=== PATIENT | female | born 1965 | race Caucasian/White ===

== ENCOUNTER 2023-07-02 17:50 | Inpatient (IN) | payer MEDICARE, MEDICAID ==
[~2023-07-02] VITALS: Ht 162.6 cm; Wt 115.1 kg
[2023-07-03] MEDS ORDERED: loperamide 2mg capsule PO PRN (15:55)
[2023-07-03] MEDS ORDERED: acetaminophen 325mg tablet PO PRN (15:55)
[2023-07-03] MEDS ORDERED: mag hydrox/Alum hydrox/simeth 30ml oral suspension PO PRN (15:55)
--- NOTE | 2023-07-03 16:30 | NUR ---
Admit note: [facility] 5150 at 1507 for DTS from [facility]. Pt expressed suicidal ideation with means, plan and intention to overdose on RX or drive off road on [address] Pt has history of Asthma,SVT, depression, fibromyalgia,PTSD, anxiety, personality disorder. Natalia called stating pt will have an abrupt demeanor, gave up the rights to her son, switches personalities fast, threatens to turn units into the state department. They recommend having one person point of contact.
[2023-07-03] MEDS ORDERED: MONT-47 PO (17:43)
[2023-07-03] MEDS ORDERED: CETI-90 PO (17:43)
[2023-07-03] MEDS ORDERED: IBUP-1984 PO (17:43)
[2023-07-03] MEDS ORDERED: IPRA4AER IH (17:43)
[2023-07-03] MEDS ORDERED: LISI10TA27 PO (17:43)
[2023-07-03] MEDS ORDERED: BUDE10.7 INH (17:43)
[2023-07-03] MEDS ORDERED: METF-436 PO (17:43)
[2023-07-03] MEDS ORDERED: ALPR-623 PO (17:43)
[2023-07-03] MEDS ORDERED: CEPH250T PO (17:43)
[2023-07-03] MEDS ORDERED: DULO-31 PO (17:43)
[2023-07-03] MEDS ORDERED: DIPH25CA83 PO (17:43)
[2023-07-03] MEDS ORDERED: TRAM50TA2 PO (17:43)
[2023-07-03] MEDS ORDERED: CARSR60C PO (17:43)
[2023-07-03] MEDS ORDERED: TOPI25TA15 PO (18:26)
[2023-07-03] MEDS ORDERED: DILT120C19 PO (18:26)
[2023-07-03 19:00] VITALS: RESP 16; O2SAT 98
[2023-07-03] MEDS ORDERED: diphenhydrAMINE 25mg capsule PO PRN (19:25)
[2023-07-03] MEDS ORDERED: ALPRAZolam 0.25mg tablet PO PRN (19:25)
[2023-07-03] MEDS ORDERED: ipratropium/albuterol 3ml nebule NEB PRN ×2 (19:25→19:29)
[2023-07-03] MEDS ORDERED: traMADol 50MG tablet PO PRN (19:25)
[2023-07-03 20:00] VITALS: BP 144/85; PULSE 85; RESP 16; TEMP 98.5; O2SAT 98
[2023-07-03] MEDS: Budesonide/Glycopyr/Formoterol (Breztri Aerosphere Inhaler) IH SCH (20:00)
[2023-07-03] MEDS ORDERED: metFORMIN 500mg tablet PO SCH (20:00)
[2023-07-03 20:58] VITALS: BP 114/85; PULSE 85; RESP 16; TEMP 98.5; O2SAT 98
[2023-07-03 23:31] VITALS: PULSE 73; RESP 18; O2SAT 95
--- NOTE | 2023-07-03 23:47 | NUR ---
Nursing Progress Note: Valeria Problem : [facility] on a 5150 at 1507 for DTS from [facility]. Pt expressed suicidal ideation with means, plan and intention to overdose on RX or drive [place] road on [address] Pt has history of Asthma,SVT, depression, fibromyalgia,PTSD, anxiety, personality disorder. Natalia called stating pt will have an abrupt demeanor, gave up the rights to her son, switches personalities fast, threatens to turn units into the state department. They recommend having one person point of contact. Interventions : Maintained a safe and supportive environment, provided clear and simple instructions, attempted to orient to reality, monitored behaviors and provided redirection and intervention as needed, provided active listening and positive encouragement, and maintained Q 15min safety checks. Response : Received pt lying in bed resting. Pt has flat affect and answered questions minimally with a blank stare. Pt states she has some depression and anxiety, denies SI at this time. Pt states she is tired and wants to sleep. Pt took Metformin this evening. Pt is currently sleeping and has no needs at this time. Plan : Pt. continues to require medication adjustments and a safe and supportive environment.
--- NOTE | 2023-07-04 01:49 | NUR ---
Pt irritability: Pt woke at approximately 0130 making accusations that this play writer did not provide her with her nighttime medications. Pt making demands to use the phone to call the patients advocate and a print out of her medication list. The CN was notified and talked with the patient.
--- NOTE | 2023-07-04 01:50 | NUR ---
Pt c/o RN not providing her with ordered medications approx 0130. Pt was informed that she had prns available if she would like more medications. Pt states 'I went over my med list with someone and I should get my meds." Assured patient that her med rec had been completed and reviewed with provider and forwarded to the pharmacy. Pt requested to see the list of meds. I attempted to show her the med list and go over it with her. Pt stood in the hallway documenting my response to multiple questions, rather than make an attempt to look at the list she had asked to see. Pt requested to contact the rights advocate. pt was allowed a phone to contact her rights advocate and became demanding and insisting she be provided with a chair in the hallway. She was informed she has a chair in her room and she could take the phone to her room and make her call. Pt handed phone back PCT after making attempts to call. Pt proceeded to stand outside the nurses station door for several minutes and then returned to her room. Pt then wrote a letter requesting a chair be placed for her outside of the nurses station door. Pt states she doesnt want to walk back and forth in the hallway to her room and back due to the distance of walking causing her pain. Pt is requesting large written materials in a size 14 point font and for the materials to be properly formatted.
[2023-07-04 07:12] VITALS: RESP 16; O2SAT 98
[2023-07-04] MEDS: diltiazem CD 120mg capsule (once-daily) PO SCH (07:38)
--- NOTE | 2023-07-04 07:38 | NUR ---
Cardizem refusal: Pt refused to take her cardizem this morning. Pt states she demanded it this morning at 0200 but was not given it. Pt states she takes it each evening and will refuse it this morning and this evening. Pt is aware this will cause her to go into SVT as it did while she was at [facility].
--- NOTE | 2023-07-04 07:55 | NUR ---
Uncooperative: Attempted to address with pt her medication reconciliation about which medications she takes at night. Pt refused to answer or cooperate demanding to speak with her patient advocate. Pt given a phone and instructions to use the phone. Pt continues to refuse to take any medications.
[2023-07-04] MEDS ORDERED: montelukast 10mg tablet PO SCH (08:00)
[2023-07-04] MEDS ORDERED: topiramate 25mg tablet PO SCH ×2 (08:00→21:00)
[2023-07-04] MEDS ORDERED: lisinopril 10 MG tablet PO SCH (08:00)
[2023-07-04] MEDS: Budesonide/Glycopyr/Formoterol (Breztri Aerosphere Inhaler) IH SCH ×2 (08:00→20:00)
[2023-07-04] MEDS ORDERED: diltiazem SR 60mg capsule (twice daily) PO SCH (08:00)
[2023-07-04] MEDS ORDERED: cetirizine 10mg tablet PO SCH (08:00)
[2023-07-04 08:30] VITALS: BP 114/85; PULSE 85; RESP 16; TEMP 98.5; O2SAT 98
--- NOTE | 2023-07-04 08:45 | NUR ---
SVT: Pt in seclusion room with Dr Maradiaga for evaluation. Pt then states her heart feels palpitations. Starting EKG and printout shows Supraventricular tachycardia at 191.
[2023-07-04] MEDS ORDERED: ALPRAZolam 0.25mg tablet PO ONE (08:55)
--- NOTE | 2023-07-04 09:00 | NUR ---
Paging hospitalist and paging Rapid Response.
[2023-07-04] MEDS ORDERED: ALPRAZolam 0.5mg tablet PO ONE (09:05)
--- NOTE | 2023-07-04 09:05 | NUR ---
Rapid response arrives and pt is refusing any treatment. PT refuses to allow any of the [facility] staff to apply vital sign treatment or start peripheral IV. Pt demands to be removed from this unit and may be cooperative if placed on another unit. Rachel from ICU attempting to help after all H staff leave the room but pt still refuses treatment . Pt demands to be placed on a different unit.
--- NOTE | 2023-07-04 09:25 | NUR ---
Hospitalist arrives: Dr Vásquez arrives and discussing this case with Dr Maradiaga about the legalities of pts refusal of treatment.
--- NOTE | 2023-07-04 09:40 | NUR ---
Note: Pt ambulates to her room. Dr Maradiaga is in her room talking with her. Attempting to convince pt to accept treatment.
[2023-07-04] MEDS: duloxetine 30mg CAPSULE.DR PO SCH (10:00)
--- NOTE | 2023-07-04 10:18 | NUR ---
Malnutrition consult: Pt reports 2-13 lb wt loss with decreased appetite/PO intake per malnutrition risk screen with RN. Most recent scaled wt hx in EMR is 116.3 kg from 02/17/15 using a standing scale, current standing scaled wt is 114.7 kg which is 210% IBW. Pt currently on a CHO controlled diet and eating well, documented with 100% PO intake of first meal. No documented decrease in muscle strength or edema. Pt currently lacks a minimum of two criteria for malnutrition though will continue to follow and monitor s/s of malnutrition. Addendum: 07/04/23 at [address] Amended: Links added.
--- NOTE | 2023-07-04 10:39 | NUR ---
Pt care was transferred to this RN in an attempt to establish a new therapeutic relationship due to pt refusing am medications. Due to am medication refusal pt had a rapid response called due to ekg showing SVT. Pt refuses telemetry monitoring. Pt is perseverating on medications not being offered to her last night at 0200 when she asked for them. Educated patient that nurse's can not give medications without doctors orders and that medications were scheduled for this am. Pt stated that the doctors "clearly are saying that I should not take my medications since they did not schedule them for me to take last night". Pt states that diltiazem will not convert her SVT to sinus rhythm, states that she needs adenosine in the ER. This RN asked patient if we took her to the ER to administer adenosine if she would accept the treatment. Pt refused. Pt stated "this [facility] has screwed the pooch. I want an ambulance to take me back to [place], that is the only treatment I will accept". Educated patient that the doctor does want her to accept treatment and has asked this RN to administer diltiazem. Pt still refuses due to not receiving it last night when she requested.
--- NOTE | 2023-07-04 10:54 | NUR ---
Note: Pt has now refused treatment from all available nurses and staff on this unit. Pt now refusing treatment at this hospital no matter what unit she would be transferred to. Pt demanding to be transferred back to [facility] where she refused treatment yesterday until she eventually accepted adenosine.
--- NOTE | 2023-07-04 11:13 | NUR ---
Mixing Machine Feeder: Dr Maradiaga wants to place pt on Line of site. Called NUrsing Mixing Machine Feeder. She states there are no more staff for Line of site. Attempting to place pt in observation room for closer observation.
--- NOTE | 2023-07-04 11:13 | NUR ---
EKG refusal: professor of industrial technology here to repeat EKG. Pt refused to allow an EKG.
--- NOTE | 2023-07-04 11:22 | NUR ---
Pt refusing to move to seclusion room for closer observation.
--- NOTE | 2023-07-04 11:29 | NUR ---
Dr Vásquez has accepted pt to telemetry department. Admit orders written and faxed. Nursing public relations supervisor is aware and finding and empty room.
[2023-07-04] MEDS ORDERED: CARCD120C PO (11:34)
[2023-07-04] MEDS ORDERED: TOP25T PO (11:34)
[2023-07-04] MEDS ORDERED: IPRA3AMP9 NEB (11:34)
[2023-07-04] MEDS ORDERED: DULO30CA52 PO (11:34)
[2023-07-04] MEDS ORDERED: Miscellaneous IH (11:34)
[2023-07-04] MEDS ORDERED: MONT-40 PO (11:34)
[2023-07-04] MEDS ORDERED: ALPR0.5T9 PO (11:34)
[2023-07-04] MEDS ORDERED: METF-1203 PO (11:34)
[2023-07-04] MEDS ORDERED: TRAM50TA2 PO (11:34)
[2023-07-04] MEDS ORDERED: CETI10TA14 PO (11:34)
[2023-07-04] MEDS ORDERED: LISI10TA27 PO (11:34)
[2023-07-04] MEDS ORDERED: DIPH-423 PO (11:34)
--- NOTE | 2023-07-04 12:05 | NUR ---
Refusal of Tele: Attempted to place pt on portable telemetry. Pt refused to allow telemetry applied.
--- NOTE | 2023-07-04 12:10 | NUR ---
Refusal of vital signs: MD ordered vital signs Q2 hours. Pt refused to allow vital signs at this time.
[2023-07-04] MEDS: ALPRAZolam 0.5mg tablet PO SCH ×2 (13:00→21:04)
--- NOTE | 2023-07-04 13:30 | NUR ---
Xray refusal: Pt refused to allow a chest xray to be performed. Pt states "I refuse, I refuse."
--- NOTE | 2023-07-04 13:52 | NUR ---
Pt refusing anything offered. This RN has checked on the patient several times since 1000 and she has refused water, medications, and food. No s/s of distress. Pt in room laying in bed. Respirations even and unlabored.
--- NOTE | 2023-07-04 14:05 | NUR ---
Note: Asked pt how she is feeling. Asked pt how her heart is feeling. PT refuses to answer. Pt is rocking back and forth in chair in her room. Dr Maradiaga called asking about progress on moving pt to Telemetry. Awaiting an open room on Telemetry for transfer. Orders written for admit to Tele and pt accepted by Dr Vásquez.
--- NOTE | 2023-07-04 15:00 | NUR ---
Dr Vásquez here to evaluate pt. states he was able to palpate pts pulse at 98-100 BPM. Pt refuses Mellisa to allow vital signs. mold maintenance technician up here to do EKG. PT refuses to allow EKG. Spoke with Dr Maradiaga about this. He states we should continue to try and get pt moved over to PCU for EKG monitoring and medications.
--- NOTE | 2023-07-04 15:23 | NUR ---
Nursing right of way supervisor comes to speak with the pt. She asks pt if she would like to be transferred to the PCU for treatment with different staff members . Pt states "This hospital has no credibility with me. The nurses last night wouldn't give me any of my medications at 0200 in the morning." Pt then starts complaining about the last hospital she was at and "They took 2 days to give me my medications." Nursing right of way supervisor Lynn continues to convince pt to go to PCU for treatment. Pt denies that any MD attempted to correct her medication times. Dr Maradiaga has changed her medication times to how she requested. Pt continued to complain about other hospitals treatment of her. PT states she called the patient advocate at the other hospital. Rn Case Manager asked again if she will go over to PCU for treatment. Pt states "Im done taking medications, I refuse treatment."
--- NOTE | 2023-07-04 16:02 | NUR ---
Pt requested to be moved due to roommate internally responding. Pt moved to observation room.
--- NOTE | 2023-07-04 16:26 | NUR ---
Pt refused all interventions, medications and treatments. Pt is accusatory and abrasive in conversations with staff. Attempts to establish rapport with pt were not successful. Pt continues to perseverate about her medications not being given to her when she wanted them at 0200.
[2023-07-04 16:30] VITALS: BP 177/112; PULSE 91; RESP 16; O2SAT 96
--- NOTE | 2023-07-04 16:39 | NUR ---
Pt requested to have vitals taken due to a "brain zap, feels like the zap when you stick your tongue to a battery, but in your brain". Took pt's vitals and charted. Asked pt if she would like to take her medications now. Pt refused stating "I'm four days in withdrawal, I might as well go all the way". Pt educated on importance of taking medications.
--- NOTE | 2023-07-04 17:33 | NUR ---
Nursing Progress Note: Valeria Problem : [facility] on a 5150 at 1507 for DTS from [facility]. Pt expressed suicidal ideation with means, plan and intention to overdose on RX or drive off road on [address] Pt has history of Asthma,SVT, depression, fibromyalgia,PTSD, anxiety, personality disorder. Natalia called stating pt will have an abrupt demeanor, gave up the rights to her son, switches personalities fast, threatens to turn units into the state department. They recommend having one person point of contact. Interventions : Maintained a safe and supportive environment, provided clear and simple instructions, attempted to orient to reality, monitored behaviors and provided redirection and intervention as needed, provided active listening and positive encouragement, and maintained Q 15min safety checks. Response : Patient was received sleeping a beginning of shift. Patient was awaken to be given morning medications. Patient started going on about how last night patient was not given proper medications. Patient then refused to have vitals taken even when informed that her medications required blood pressure. Patient then refused all medications including heart medications. Patient went into talk to Dr Maradiaga who stated patient complained of heart palpitations . Dr. Maradiaga then ordered a ekg and vitals. Patient finally agreed to get vitals taken. Ekg read super ventricular tachycardia and rapid was called . Patient then started to refuse all care and meds and complain about the incompetence of staff. As 1744 patient continues to refuse all meds ,manipulate the staff and threaten to call patient rights and the state. Patient continues to not be willing to reason. Plan : Pt. continues to require medication adjustments and a safe and supportive environment.
[2023-07-04 20:00] VITALS: BP 151/92; PULSE 90; RESP 16; RESP 17; TEMP 96.9; O2SAT 96
[2023-07-04] MEDS: metFORMIN 500mg tablet PO SCH (20:00)
[2023-07-04] MEDS: cetirizine 10mg tablet PO SCH (21:02)
[2023-07-04] MEDS: montelukast 10mg tablet PO SCH (21:03)
[2023-07-04] MEDS: lisinopril 10 MG tablet PO SCH (21:04)
[2023-07-04] MEDS: traMADol 50MG tablet PO PRN (21:08)
[2023-07-05] VITALS (7 sets, daily range): BP systolic 133–153; BP diastolic 82–90; PULSE 62–96; RESP 16; TEMP 96.6–97.2; O2SAT 97–99
--- NOTE | 2023-07-05 03:27 | NUR ---
Nursing Progress Note: Valeria Problem: [facility] on a 5150 at 1507 for DTS from [facility]. Pt expressed suicidal ideation with means, plan and intention to overdose on RX or drive off road on [address] Pt has history of Asthma, VT, depression, fibromyalgia, PTSD, anxiety, personality disorder. Natalia called stating pt will have an abrupt demeanor, gave up the rights to her son, switches personalities fast, and threatens to turn units into the state department. They recommend having one person point of contact. Interventions : Maintained a safe and supportive environment, provided clear and simple instructions, attempted to orient to reality, monitored behaviors and provided redirection and intervention as needed, provided active listening and positive encouragement, and maintained Q 15min safety checks. Response: upon shift patient was in room with sitter. During 1:1, patient seemed misunderstood. She explained a lot of the events that had happened during AM shift and her strong disliking of a certain nurse. She stated she will call who she needs to call to get things right, and to be treated right. She ensures us as the hospital cannot let her leave without a ride arranged. She mentioned to sitter that her friend is going to get a gun off the black market and shes going to use it. She stated since every other way did not work, the gun will. Patient also stated she has no need for the sitter, shes better now. Patient denies any voices, hallucinations, and bad thoughts. Patient requested a retake of VS, VS came back with improvement. Patient remained in bed all night. Plan: Pt. continues to require medication adjustments and a safe and supportive environment.
[2023-07-05] MEDS: Budesonide/Glycopyr/Formoterol (Breztri Aerosphere Inhaler) IH SCH ×2 (08:00→20:00)
[2023-07-05] MEDS: metFORMIN 500mg tablet PO SCH ×2 (08:07→20:28)
[2023-07-05] MEDS: diltiazem CD 120mg capsule (once-daily) PO SCH (08:07)
[2023-07-05] MEDS: ALPRAZolam 0.5mg tablet PO SCH ×3 (08:07→20:28)
[2023-07-05] MEDS: duloxetine 30mg CAPSULE.DR PO SCH (08:07)
[2023-07-05] MEDS: traMADol 50MG tablet PO PRN ×2 (08:09→20:29)
[2023-07-05] MEDS: ipratropium 0.5 MG/2.5ML nebule IH SCH ×3 (09:42→20:40)
[2023-07-05] MEDS: budesonide 0.5mg/2ml UD nebule IH SCH ×2 (09:42→20:40)
[2023-07-05] MEDS ORDERED: vortioxetine HBr tablet 5 MG TABLET PO ONE (12:40)
--- NOTE | 2023-07-05 16:23 | NUR ---
Nursing Progress Note: Problem: [facility] on a 5150 at 1507 for DTS from [facility]. Pt expressed suicidal ideation with means, plan and intention to overdose on RX or drive off road on [address] Pt has history of Asthma, VT, depression, fibromyalgia, PTSD, anxiety, personality disorder. Natalia called stating pt will have an abrupt demeanor, gave up the rights to her son, switches personalities fast, and threatens to turn units into the state department. They recommend having one person point of contact. Interventions : 1:1 assessment, establishment of rapport, therapeutic conversation, active listening, medication administration/education/monitoring, ensured contract for safety, provided distraction, redirection, positive reinforcement, LOS until just before morning snack around and then maintained Q15 minute safety checks. Response: Pt was up for breakfast and cooperative with her medications. Upon auscultation of lungs, inspiratory and expiratory wheezes noted throughout. Pt had an order for her home inhaler Bretzi which is not available from our pharmacy. Pt is from [facility] and has no one available to bring the inhaler to her. Consulted with pharmacy and Dr Maradiaga to determine appropriate nebulizer orders. Pt cannot use albuterol due to the risk of it sending her into SVT. Orders were obtained for budesonide neb tx BID routine, and ipratropium nebulizer treatments Q6HWA as well as Q4H PRN. Pt tolerated nebulizer treatments well. Pt reports that it was determined that she does not have asthma but has COPD. Pt reports that she cannot taste or smell, she doesn't know why, she also has blurry vision and this has been going on for quite some time. Pt states she believes it might be some kind of conversion disorder. Pt c/o 5/10 neck and low back pain this morning and was given PRN tramadol 50 mg with good effect. Pt was able to contact for safety this morning so her line of sight was discontinued before morning snack. Pt rated her depression at an 8/10 though denied SI. She showered today. Pt was given a one time dose of Trintellix 2.5 mg now at 1336. She has new orders for Trintellix 5 mg BID to start tomorrow. Her Topamax was increased to 75 mg HS. Plan: Pt. continues to require medication adjustments and a safe and supportive environment. Addendum: 07/05/23 at 1642 by Jaimie Plasencia RN (Lee) VSS, HR 62 BPM.
[2023-07-05] MEDS ORDERED: vortioxetine HBr tablet 10 MG TABLET PO SCH (20:00)
[2023-07-05] MEDS: lisinopril 10 MG tablet PO SCH (20:29)
[2023-07-05] MEDS: cetirizine 10mg tablet PO SCH (20:30)
[2023-07-05] MEDS: montelukast 10mg tablet PO SCH (20:31)
[2023-07-05] MEDS ORDERED: topiramate 25mg tablet PO SCH (21:00)
[2023-07-06] VITALS (7 sets, daily range): BP systolic 103–122; BP diastolic 70–77; PULSE 66–82; RESP 15–17; TEMP 97.2–97.7; O2SAT 95–99
--- NOTE | 2023-07-06 03:23 | NUR ---
Nursing Progress Note: Valeria Problem: [facility] on a 5150 at 1507 for DTS from [facility]. Pt expressed suicidal ideation with means, plan and intention to overdose on RX or drive off road on [address] Pt has history of Asthma, VT, depression, fibromyalgia, PTSD, anxiety, personality disorder. Natalia called stating pt will have an abrupt demeanor, gave up the rights to her son, switches personalities fast, and threatens to turn units into the state department. They recommend having one person point of contact. Interventions: 1:1 assessment, establishment of rapport, therapeutic conversation, active listening, medication administration/education/monitoring, ensured contract for safety, provided distraction, redirection, positive reinforcement, LOS until just before morning snack around and then maintained Q15 minute safety checks. Response: upon entering shift patient was observed in bed with eyes closed and lying on right side. Patient now on Q15 minute safety checks. Patient easily aroused when entering patient room. Patient seemed more down and less talkative today, when asked if there was something bothering her she states the same nurse as yesterday. Patient began to vent about the reason she wasnt attending dinner stating her roommate rearranges and rummages through her belongings when shes out at meals and socializing. This nurse got the okay to move her to RM 324A in hopes that will help her and give her more security of her belongings and space. Patient denies all psychosis symptoms and takes medications with no complaints to note. Patient was administered PRN Tramadol for back pain. Patient participated in HS snack and then later returned to room and has remained there all night. Plan: Pt. continues to require medication adjustments and a safe and supportive environment.
[2023-07-06] MEDS: ipratropium 0.5 MG/2.5ML nebule IH SCH ×3 (06:00→20:00)
[2023-07-06] MEDS: Budesonide/Glycopyr/Formoterol (Breztri Aerosphere Inhaler) IH SCH ×2 (08:00→20:00)
[2023-07-06] MEDS: metFORMIN 500mg tablet PO SCH ×2 (08:17→20:00)
[2023-07-06] MEDS: diltiazem CD 120mg capsule (once-daily) PO SCH (08:17)
[2023-07-06] MEDS: LORazepam 0.5 MG tablet PO SCH ×3 (08:17→21:00)
[2023-07-06] MEDS: duloxetine 30mg CAPSULE.DR PO SCH (08:18)
[2023-07-06] MEDS: traMADol 50MG tablet PO PRN (08:24)
[2023-07-06] MEDS ORDERED: budesonide 0.5mg/2ml UD nebule IH SCH (08:57)
[2023-07-06] MEDS: ipratropium 0.5 MG/2.5ML nebule IH PRN (09:06)
[2023-07-06] MEDS: budesonide 0.5mg/2ml UD nebule IH SCH ×2 (09:06→20:07)
--- NOTE | 2023-07-06 11:30 | NUR ---
[facility] Toya from [facility] (ph# [phone]) called to provide information. She reported Valeria gave up her 14 y/o son last week prior to getting hospitalized. She also gave up her older two kids previously in the same fashion. She will now have some sort of child abandonment charge. Toya was concerned that Valeria was truly suicidal and that is why she gave up her son. Toya is concerned that Valeria will get discharged prematurely. DAVID Yanez
[2023-07-06] MEDS: traMADol 50MG tablet PO SCH ×2 (13:03→21:00)
--- NOTE | 2023-07-06 15:00 | NUR ---
Introduced myself to Valeria as her social work nurse and met with her in her room. We were interrupted a couple times by her roommate. Valeria reported she has been asking for help for months and she gave up her son because she was planning on harming herself and she didn't want her son to find her . Valeria reported she was arrested and charged with child abandonment. Valeria reported she was hoping to go to a CSU upon discharge. She reported she went to one in [place] and it didn't work out. Valeria reported she has an apartment in [place] to return to upon discharge and she is connected with [facility]. DAVID Yanez Addendum: 07/07/23 at 1249 by Diamond Santos SS Spoke to charge nurse, Kat May, regarding change of roommate due to roommate being quite disruptive.
--- NOTE | 2023-07-06 15:56 | NUR ---
Nursing Progress Note: Valeria Problem: [facility] on a 5150 at 1507 for DTS from [facility]. Pt expressed suicidal ideation with means, plan and intention to overdose on RX or drive off road on [address] Pt has history of Asthma, VT, depression, fibromyalgia, PTSD, anxiety, personality disorder. Natalia called stating pt will have an abrupt demeanor, gave up the rights to her son, switches personalities fast, and threatens to turn units into the state department. They recommend having one person point of contact. Interventions : 1:1 assessment, establishment of rapport, therapeutic conversation, active listening, medication administration/education/monitoring, ensured contract for safety, provided distraction, redirection, positive reinforcement, LOS until just before morning snack around and then maintained Q15 minute safety checks. Response: Received Pt in bed and in no distress at the beginning of this shift. Pt was cooperative with vitals and remained in bed. Attempts made to introduce self to her and establish a rapport. Pt resistive to Tx/ AM meds with fault finding of staff and claims we are not providing her with correct Med list. After much encouragement, assurance and attempts to show we want to treat her well, she took her AM meds. Pt was given prn Tramadol for back pain and was irritated that it was not a scheduled med. Pt skipped breakfast and met with Dr Maradiaga. Pt tolerated AM breathing Txs well. Pt had multiple med changes today; Ativan started and Xanax DCd, Tritellex DCd, Tramadol started as scheduled. Pt was given tramadol for back pain with good effect in AM and at 1300. Pt was up to [facility] room for AM group and was smiling and talking with this RN pleasantly. Her room was changed back to 330 and she responded to the change well. Pt took 1300 meds w/o any issues. Pt spent afternoon napping. Multiple call from [facility] were responded too by this RN and staff. Plan: Pt. continues to require medication adjustments and a safe and supportive environment.
[2023-07-06] MEDS: docusate sod 100mg capsule PO SCH ×2 (18:03→20:00)
--- NOTE | 2023-07-06 20:18 | NUR ---
Pt. is now complaining again about her roommate. The reason this patient was moved last night was due to similar issues and the other patient(her roommate) is not capable of being redirected, and would be difficult to be roommates with any patient. This is the reason the decision was made to move Valeria into a room with a quiet roommate. The patient was offered to move to another room, but she continues to insist that her roommate is the one that should be moved. I once again explained to her my reasoning for my decision last night and pt. is unwilling to understand how it is unfair to have a difficult pt. in with another roommate, when she could move if she desires. She is now refusing to takes meds, demanding that we call Dr. Maradiaga and that he is going to "Be on this like white on rice!" She is now requesting complaint forms and now stating that I did not give her all the complaint form pages.
[2023-07-06] MEDS: montelukast 10mg tablet PO SCH (21:00)
[2023-07-06] MEDS: lisinopril 10 MG tablet PO SCH (21:00)
[2023-07-06] MEDS: topiramate 100mg tablet PO SCH (21:00)
[2023-07-06] MEDS: cetirizine 10mg tablet PO SCH (21:00)
--- NOTE | 2023-07-07 04:33 | NUR ---
Nursing Progress Note: Problem: [facility] at 1507 for DTS from [facility]. Pt expressed suicidal ideation with means, plan and intention to overdose on RX or drive off road on [address] Pt has history of Asthma, [place], depression, fibromyalgia, PTSD, anxiety, personality disorder. Natalia called stating pt will have an abrupt demeanor, gave up the rights to her son, switches personalities fast, and threatens to turn units into the state department. They recommend having one person point of contact. Interventions: 1:1 assessment, establishment of rapport, therapeutic conversation, active listening, medication administration/education/monitoring, ensured contract for safety, provided distraction, redirection, positive reinforcement, LOS until just before morning snack around and then maintained Q15 minute safety checks. Response: Pt was sleeping at start of shift. Woke up easily for VS. Complained about roommate asked to have roommate moved. (See previous note by Charge Nurse) Pt refused all HS meds "I need to stay awake and see what my roommate is going to do." Asked pt if she wanted Glucophage and Lisinopril because they would not make her sleepy Pt refused. Pt BP was 122/70, HR was 76, Sats 99% on RA. Last A1C on 07/05 was 6.1. Pt went to sleep shortly after that she slept till about 22:00 woke up sitting on side of bed and rocking back and forth. Offered Medication to help her sleep or Tramadol if she was in pain. Pt refused, She responded in an almost whisper and said only one word no. Pt went into bathroom and sat on the bathroom floor in the corner. Pt returned to bed and is sleeping at this time. Plan: Pt. continues to require medication adjustments and a safe and supportive environment.
[2023-07-07 07:00] VITALS: RESP 16; O2SAT 97
[2023-07-07 08:00] VITALS: RESP 18
[2023-07-07] MEDS: traMADol 50MG tablet PO SCH ×3 (08:00→20:03)
[2023-07-07] MEDS: Budesonide/Glycopyr/Formoterol (Breztri Aerosphere Inhaler) IH SCH ×2 (08:00→20:00)
[2023-07-07] MEDS: ipratropium 0.5 MG/2.5ML nebule IH SCH ×3 (08:00→20:00)
[2023-07-07] MEDS: budesonide 0.5mg/2ml UD nebule IH SCH ×2 (08:00→20:00)
[2023-07-07] MEDS: LORazepam 0.5 MG tablet PO SCH ×3 (08:00→20:03)
--- NOTE | 2023-07-07 09:15 | NUR ---
Refusal of Care: Received pt. sleeping in bed, she awoke irritable and refused vital signs and medications despite ongoing education and encouragement from this keno writer regarding the importance of these. Pt. stated agitatedly, "I don't need a lecture from you!" She went on to report with agitation that shift engineer did not remove her room mate from her room last night. Pt. stated agitatedly, "They didn't follow Dr. Maradiaga's instructions!" This keno writer provided active listening and positive encouragement and assured pt. that she would be contacting Dr. Maradiaga regarding this issue. However, pt. remained irritable and began making various telephone calls and appeared to threaten this keno writer, "[facility] is going to be calling you guys!" This keno writer notified Dr. Maradiaga via telephone of the pt' refusing V/S, medications (including Cardizem), and her ongoing demands that her roommate be removed from her room. Dr. Maradiaga gave orders to remove pt's roommate from her room and this task is now in process. This keno writer informed pt. that staff is working on having pt's roommate removed at this time and she stated irritably, "I'll believe it when I see it!" Pt. is now back on the telephone requesting a WRIT, this form was provide to pt, will continue to monitor closely. Addendum: 07/07/23 at 1008 by Clarissa Zuleta RN Pt. is on phone at this time. She repeatedly shuts her door and is reminded by staff repeatedly that she must leave that door cracked. Pt. remains agitated and states, "I need my privacy!" Will continue to provide education to pt. that the door must be cracked per unit policy.
--- NOTE | 2023-07-07 11:27 | NUR ---
Initial: Pt admit DX borderline personality d/o, mood d/o, SVT, HTN, and DM per EMR. Unsure DM accuracy as A1C 6.1% w/ no prior A1C hx in EMR though takes metformin at home per clinical pharmacist. PO fluctuates w/ occasional refusals ~53% avg carb controlled meals meeting ~61% kcal and ~73% protein estimated needs. RD d/w RN recommends liberalizing to regular diet given A1C and PO trends if MD agreeable; current intake trends would meet ~88% kcal and ~93% protein estimated needs on regular. Pt does have metformin BID ordered though refusing most meds including colace she requested for reported constipation; LBM 8/12 per EMR. Will monitor for further PO trends and nutrition intervention needs this admit. Rec: 1. liberalize to regular diet; A1C 6.1% carb restriction not indicated; encourage PO 2. routine bowel care; encourage acceptance to bowel regimen 3. weekly wt Addendum: 07/07/23 at [address] Amended: Links added.
[2023-07-07 13:06] VITALS: BP 150/102; PULSE 81; RESP 16; TEMP 98.4; O2SAT 97
[2023-07-07] MEDS: duloxetine 30mg CAPSULE.DR PO SCH (13:10)
[2023-07-07] MEDS: docusate sod 100mg capsule PO SCH ×2 (13:11→20:03)
[2023-07-07] MEDS: vortioxetine HBr tablet 5 MG TABLET PO SCH (13:11)
[2023-07-07] MEDS: diltiazem CD 120mg capsule (once-daily) PO SCH (13:11)
[2023-07-07] MEDS: metFORMIN 500mg tablet PO SCH ×2 (13:12→20:03)
[2023-07-07 14:48] VITALS: BP 145/90
--- NOTE | 2023-07-07 18:10 | NUR ---
Nursing Progress Note: Problem : [facility] 5150 at 1507 for DTS from [facility]. Pt expressed suicidal ideation with means, plan and intention to overdose on RX or drive off road on [address] Pt has history of Asthma, VT, depression, fibromyalgia, PTSD, anxiety, personality disorder. [place]ia called stating pt will have an abrupt demeanor, gave up the rights to her son, switches personalities fast, and threatens to turn units into the state department. They recommend having one person point of contact. Interventions : Introduced self and attempted to establish rapport, maintained a safe and supportive environment, ensured contract for safety, provided clear and simple instructions, provided active listening and positive encouragement, provided education and encouragement regarding medications, endorsed pt's refusal of care to Dr. Maradiaga, and maintained Q 15min safety checks. Response : Received pt. sleeping in bed at the beginning of the shift, she awoke refusing all care, with agitation, and was guarded (see previous note). This marine underwriter introduced herself and attempted to establish rapport, pt. remained agitated and avoided eye contact with this marine underwriter. She refused conversation, shaking her head yes or no to direct questions only. Pt. shook her head no when questioned regarding any S/I, A/V/HERNDON, anxiety, or depression. She does not appear to be responding to internal stimuli and no delusional statements were made. Pt. isolated in her room throughout the morning. Finally, at approximately [address] Maradiaga, pt. consented to having her vital signs assessed and taking her ordered medications. Dr. Maradiaga gave orders for this marine underwriter to administer all of pt's ordered morning medications that she had earlier refused (however ordered morning dose of Ativan and Ultram were non-administered as pt. had an afternoon dose of these medications scheduled). Pt's blood pressure was assessed and was elevated, however it was reassessed after taking her ordered Cardizem and was WNL. Pt. also withdrew her WRIT after talking with Dr. Maradiaga, and plans to discharge later this week. Pt. was observed to be interacting appropriately with others during the afternoon. She was compliant with all further care, will continue to monitor closely. Plan : Pt. continues to require medication adjustments and a safe and supportive environment.
[2023-07-07 19:00] VITALS: RESP 18; O2SAT 96
[2023-07-07 19:48] VITALS: BP 139/84; PULSE 78; RESP 18; TEMP 97.5; O2SAT 96
[2023-07-07] MEDS: lisinopril 10 MG tablet PO SCH (20:02)
[2023-07-07] MEDS: cetirizine 10mg tablet PO SCH (20:02)
[2023-07-07] MEDS: montelukast 10mg tablet PO SCH (20:03)
[2023-07-07] MEDS: topiramate 100mg tablet PO SCH (20:04)
[2023-07-07] MEDS: magnesium hydroxide 30ml (MOM) UD suspension PO PRN (22:14)
[2023-07-07] MEDS: acetaminophen 325mg tablet PO PRN (22:49)
[2023-07-08] MEDS ORDERED: traZODone 50mg tablet PO SCH (00:25)
--- NOTE | 2023-07-08 03:04 | NUR ---
Nursing Progress Note: Problem : [facility] 5150 at 1507 for DTS from [facility]. Pt expressed suicidal ideation with means, plan and intention to overdose on RX or drive off road on [address] Pt has history of Asthma, VT, depression, fibromyalgia, PTSD, anxiety, personality disorder. Natalia called stating pt will have an abrupt demeanor, gave up the rights to her son, switches personalities fast, and threatens to turn units into the state department. They recommend having one person point of contact. Interventions : Introduced self and attempted to establish rapport, maintained a safe and supportive environment, ensured contract for safety, provided clear and simple instructions, provided active listening and positive encouragement, provided education and encouragement regarding medications, endorsed pt's refusal of care to Dr. Maradiaga, and maintained Q 15min safety checks. Response : Pt more pleasant to nursing staff this shift than last NOC shift. She did berate the horticulture worker who cleaned the empty bed in her room. She also threatened the RT With reporting him to her insurance company and refused all RT treatments. She took all HS meds. When she had trouble getting to sleep an order for Trazodone was obtained and she took that with good results. She is sleeping at this time. Pt is guarded so it is difficult to asses her mental state. Pt denies. S/I, A/V/HERNDON, anxiety, or depression. She does not appear to be responding to internal stimuli and no delusional statements were made. She was cooperative with assessment has some wheezing in lower lungs and a non productive cough. Pt. isolated in her room throughout the morning. Finally, at approximately 1300 after talking with Plan : Pt. continues to require medication adjustments and a safe and supportive environment.
[2023-07-08 07:00] VITALS: BP 117/117; PULSE 78; RESP 16; TEMP 97.7; O2SAT 16; O2SAT 95
[2023-07-08] MEDS: vortioxetine HBr tablet 5 MG TABLET PO SCH (08:00)
[2023-07-08] MEDS: diltiazem CD 120mg capsule (once-daily) PO SCH (08:00)
[2023-07-08] MEDS: LORazepam 0.5 MG tablet PO SCH ×3 (08:00→20:00)
[2023-07-08] MEDS: docusate sod 100mg capsule PO SCH ×2 (08:00→20:00)
[2023-07-08] MEDS: traMADol 50MG tablet PO SCH ×3 (08:00→20:57)
[2023-07-08] MEDS: ipratropium 0.5 MG/2.5ML nebule IH SCH ×3 (09:00→21:00)
[2023-07-08] MEDS: Budesonide/Glycopyr/Formoterol (Breztri Aerosphere Inhaler) IH SCH ×2 (09:03→20:00)
[2023-07-08] MEDS: budesonide 0.5mg/2ml UD nebule IH SCH ×2 (09:04→20:00)
[2023-07-08] MEDS: metFORMIN 500mg tablet PO SCH ×2 (09:49→20:00)
[2023-07-08] MEDS: duloxetine 30mg CAPSULE.DR PO SCH (09:49)
--- NOTE | 2023-07-08 12:41 | NUR ---
INHALER [facility] has overnighted [facility]'s inhaler, it should arrive tomorrow. DAVID Yanez
[2023-07-08 13:31] LABS: BASOPHILS # (AUTO) 0.1 X10'3 (0-0.2); BASOPHILS % (AUTO) 0.9 % (0-1); EOSINOPHILS # (AUTO) 0.5 X10'3 (0-0.9); EOSINOPHILS % (AUTO) 4.6 % (0-6); HEMOGLOBIN 13.8 g/dl (12.0-16.0); LYMPHOCYTES # (AUTO) 2.6 X10'3 (1.1-4.8); LYMPHOCYTES % (AUTO) 22.5 % (21-51); MEAN CORPUSCULAR HEMOGLOBIN 28.6 PG (27.0-31.0); MEAN CORPUSCULAR HGB CONC 32.1 g/dL (33.0-36.5); MEAN CORPUSCULAR VOLUME 89.2 FL (78-98); MEAN PLATELET VOLUME 8.9 FL (7.4-10.4); MONOCYTES % (AUTO) 9.2 % (2-12); NEUTROPHILS # (AUTO) 7.2 X10'3 (1.8-7.7); NEUTROPHILS % (AUTO) 62.8 % (42-75); PLATELET COUNT 332 X10'3 (140-440); RED BLOOD COUNT 4.82 X10'6 (4.20-5.60); RED CELL DISTRIBUTION WIDTH 15.6 % (11.5-14.5); WHITE BLOOD COUNT 11.5 X10'3 (4.5-11.0)
[2023-07-08 13:46] LABS: ALANINE AMINOTRANSFERASE 22 U/L (12-78); ALBUMIN 3.5 G/DL (3.4-5.0); ALKALINE PHOSPHATASE 119 IU/L (46-116); ANION GAP 6 (8-16); ASPARTATE AMINO TRANSFERASE 13 U/L (10-37); BILIRUBIN,TOTAL 0.4 MG/DL (0.1-1.0); BLOOD UREA NITROGEN 26 MG/DL (7-18); BUN/CREATININE RATIO 29.9 (10.0-20.0); CALCIUM 9.2 MG/DL (8.5-10.1); CHLORIDE 104 MMOL/L (99-107); CREATININE 0.87 MG/DL (0.40-0.90); GLUCOSE 101 MG/DL (70-104); POTASSIUM 4.3 MMOL/L (3.5-5.1); SODIUM 138 MMOL/L (135-145); TOTAL CARBON DIOXIDE 28.5 MMOL/L (24-32); eCRCL 62 ML/MIN; eGFR 67 ML/MIN
--- NOTE | 2023-07-08 18:09 | NUR ---
Nursing Progress Note: Problem : [facility] on a 5150 at 1507 for DTS from [facility]. Pt expressed suicidal ideation with means, plan and intention to overdose on RX or drive off road on [address] Pt has history of Asthma, [place], depression, fibromyalgia, PTSD, anxiety, personality disorder. Natalia called stating pt will have an abrupt demeanor, gave up the rights to her son, switches personalities fast, and threatens to turn units into the state department. They recommend having one person point of contact. Interventions : Introduced self and attempted to establish rapport, maintained a safe and supportive environment, ensured contract for safety, provided clear and simple instructions, provided active listening and positive encouragement, provided education and encouragement regarding medications, endorsed pt's refusal of care to Dr. Maradiaga, and maintained Q 15min safety checks. Response : Received patient sleeping in bed at change of shift. When patient awakens she brings RN a tissue with some white sputum on it, patient stated that she had just coughed it up out of her lungs. Patient then went on a tangent about not getting her Budesonide inhaler that we do not carry at this hospital. Patient was agitated and was on the phone with the Patients Rights Advocate, and other agencies. Carry SW was able to get [facility] to overnight it to the patient. Patient verbalizes understanding of this. Patient is very negative and appears to enjoy something to become agitated about. Patient spent most of the afternoon sleeping after lunch. Patient refused her Trentillex, because she thinks it will keep her up at night due to side effect she read. Plan : Pt. continues to require medication adjustments and a safe and supportive environment.
[2023-07-08 19:21] VITALS: BP 123/81; PULSE 71; RESP 14; TEMP 97.9; O2SAT 97
[2023-07-08 19:59] VITALS: RESP 14; O2SAT 97
[2023-07-08] MEDS: magnesium hydroxide 30ml (MOM) UD suspension PO PRN (20:49)
[2023-07-08] MEDS: acetaminophen 325mg tablet PO PRN (20:49)
[2023-07-08] MEDS: traZODone 50mg tablet PO SCH (20:56)
[2023-07-08] MEDS: montelukast 10mg tablet PO SCH (20:56)
[2023-07-08] MEDS: topiramate 100mg tablet PO SCH (20:57)
[2023-07-08] MEDS: lisinopril 10 MG tablet PO SCH (20:57)
[2023-07-08] MEDS: cetirizine 10mg tablet PO SCH (20:58)
[2023-07-08 21:30] VITALS: PULSE 76; RESP 18; O2SAT 94
--- NOTE | 2023-07-08 22:34 | NUR ---
Notified hospitalist re: CXR results of Trace left lung atelectasis vs infiltrate. Suspect 1.[address] May do CT for further evaluation. Received orders for Azithromax pack. Take 1 tablet daily x 5 days.
--- NOTE | 2023-07-09 04:45 | NUR ---
Nursing Progress Note: Problem : [facility] a 5150 at 1507 for DTS from [facility]. Pt expressed suicidal ideation with means, plan and intention to overdose on RX or drive off road on [address] Pt has history of Asthma, VT, depression, fibromyalgia, PTSD, anxiety, personality disorder. [place] called stating pt will have an abrupt demeanor, gave up the rights to her son, switches personalities fast, and threatens to turn units into the state department. They recommend having one person point of contact. Interventions : Introduced self and attempted to establish rapport, maintained a safe and supportive environment, ensured contract for safety, provided clear and simple instructions, provided active listening and positive encouragement, provided education and encouragement regarding medications, endorsed pt's refusal of care to Dr. Maradiaga, and maintained Q 15min safety checks. Response : Upon arrival to shift noted patient sleeping in bed on her right side. Appeared to be tired and not wanting to engage. Received call from Rad. Awoke patient and requested her to get up for her CXR. Received CXR results and got orders for Zithromax. Patient refused meds/assessment. Didn't want to sit up to take HS meds and pain meds because she was in pain. Reports, Veronika layed down for the night. Offered her different solutions and patient continue to refuse. Im exhaused from dealing with people today." Patient got up and paced hallway in early hours of the night for a few hours. Offered patient PRN and she refuses needing it. Denies MH s/sx. Patient will receive first dose abx tomorrow am. Slept well. Will continue to monitor Plan : Pt. continues to require medication adjustments and a safe and supportive environment.
[2023-07-09 07:00] VITALS: BP 149/103; PULSE 97; RESP 16; TEMP 98.3; O2SAT 99
[2023-07-09] MEDS: diltiazem CD 120mg capsule (once-daily) PO SCH (08:00)
[2023-07-09] MEDS: budesonide 0.5mg/2ml UD nebule IH SCH ×2 (08:00→20:00)
[2023-07-09] MEDS: metFORMIN 500mg tablet PO SCH ×2 (08:00→20:00)
[2023-07-09] MEDS ORDERED: azithromycin 250mg tablet PO ONE (08:00)
[2023-07-09] MEDS: LORazepam 0.5 MG tablet PO SCH (08:00)
[2023-07-09] MEDS: traMADol 50MG tablet PO SCH ×2 (08:00→20:00)
[2023-07-09] MEDS: Budesonide/Glycopyr/Formoterol (Breztri Aerosphere Inhaler) IH SCH ×2 (08:00→20:00)
[2023-07-09] MEDS ORDERED: duloxetine 30mg CAPSULE.DR PO SCH (08:00)
[2023-07-09] MEDS: docusate sod 100mg capsule PO SCH ×2 (08:00→20:00)
[2023-07-09] MEDS: vortioxetine HBr tablet 5 MG TABLET PO SCH (08:00)
[2023-07-09] MEDS: ipratropium 0.5 MG/2.5ML nebule IH SCH ×3 (09:00→20:09)
[2023-07-09] MEDS ORDERED: LISI10TA27 PO (09:24)
[2023-07-09] MEDS ORDERED: VORT5TAB PO (09:24)
[2023-07-09] MEDS ORDERED: MONT-40 PO (09:24)
[2023-07-09] MEDS ORDERED: TRAZ-251 PO (09:24)
[2023-07-09] MEDS ORDERED: METF-1203 PO (09:24)
[2023-07-09] MEDS ORDERED: Lorazepam PO (09:24)
[2023-07-09] MEDS ORDERED: AZI25OT PO ×2 (09:24)
[2023-07-09] MEDS ORDERED: CARCD120C PO (09:24)
[2023-07-09] MEDS ORDERED: TOP100T PO (09:24)
--- NOTE | 2023-07-09 10:00 | NUR ---
Writ Pt had filed a writ earlier this week and then rescinded it. She then filed a second writ in the evening of 07/07 and yesterday the provider attempted to discharge pt. so writ was not filed. This morning it was conveyed to me that pt. did not feel ready to discharge and was still in the hospital. I met with the pt to determine if she wanted to file the writ to ask the courts to release her. Pt stated "I can not answer that" and seemed to want to play word games. Eventually, pt did agree that she does not feel ready to discharge and does not want to file a writ at this time.
--- NOTE | 2023-07-09 15:12 | NUR ---
Patient refusing her SVN treatments. She states only her " Breztri inhaler works for her. Our substitute does not". Her inhaler is not available.
--- NOTE | 2023-07-09 16:46 | NUR ---
Nursing Progress Note: Problem : [facility] 5150 at 1507 for DTS from [facility]. Pt expressed suicidal ideation with means, plan and intention to overdose on RX or drive off road on [address] Pt has history of Asthma, VT, depression, fibromyalgia, PTSD, anxiety, personality disorder. [place] called stating pt will have an abrupt demeanor, gave up the rights to her son, switches personalities fast, and threatens to turn units into the state department. They recommend having one person point of contact. Interventions : Introduced self and attempted to establish rapport, maintained a safe and supportive environment, ensured contract for safety, provided clear and simple instructions, provided active listening and positive encouragement, provided education and encouragement regarding medications, endorsed pt's refusal of care to Dr. Maradiaga, and maintained Q 15min safety checks. Response : Patient awake at change of shift yelling about not getting the printout of her medications that she asked for at 04:00 and had not received them. Gave patient printouts of medications. Patient refused all of her medications this morning. Patient was on the telephone complaining that she has not been involved in her own discharge, talked to Diamond STEWART, who went and talked to patient about discharge. Patient went to court today and decided to stay and not file a writ. Public guardian took her complaints. She spent most of the morning calling agencies and reporting our dept. Patient has been isolating to her room, but will come out of room and walk the hallway once and then go back to her room. Patient is coughing, but refusing her antibiotics. Patient will not make eye contact with primary RN. Patient is refusing care. Plan : Pt. continues to require medication adjustments and a safe and supportive environment.
[2023-07-09 20:00] VITALS: BP 120/88; PULSE 100; RESP 16; TEMP 97.6; O2SAT 98
[2023-07-09] MEDS: cetirizine 10mg tablet PO SCH (21:00)
[2023-07-09] MEDS: traZODone 50mg tablet PO SCH (21:00)
[2023-07-09] MEDS: lisinopril 10 MG tablet PO SCH (21:00)
[2023-07-09] MEDS: topiramate 100mg tablet PO SCH (21:00)
[2023-07-09] MEDS: montelukast 10mg tablet PO SCH (21:00)
--- NOTE | 2023-07-10 01:53 | NUR ---
Nursing Progress Note: Problem : [facility] on a 5150 at 1507 for DTS from [facility]. Pt expressed suicidal ideation with means, plan and intention to overdose on RX or drive off road on [address] Pt has history of Asthma, VT, depression, fibromyalgia, PTSD, anxiety, personality disorder. [place] called stating pt will have an abrupt demeanor, gave up the rights to her son, switches personalities fast, and threatens to turn units into the state department. They recommend having one person point of contact. Interventions : Introduced self and attempted to establish rapport, maintained a safe and supportive environment, ensured contract for safety, provided clear and simple instructions, provided active listening and positive encouragement, provided education and encouragement regarding medications, endorsed pt's refusal of care to Dr. Maradiaga, and maintained Q 15min safety checks. Response : Patient is noncompliant, dismissive and irritable this shift; she refused all HS medications and waved poem writer off. She was only out of her room once to complain about her door being opened during safety rounds otherwise patient isolated to her room. She is observed sleeping and does not appear to be having difficulty. Plan : Pt. continues to require medication adjustments and a safe and supportive environment.
[2023-07-10 07:00] VITALS: RESP 14; O2SAT 98
[2023-07-10 08:00] VITALS: BP 179/109; PULSE 82; RESP 14; TEMP 98.1; O2SAT 98
[2023-07-10] MEDS: traMADol 50MG tablet PO SCH ×2 (08:00→21:44)
[2023-07-10] MEDS: azithromycin 250mg tablet PO SCH (08:00)
[2023-07-10] MEDS: Budesonide/Glycopyr/Formoterol (Breztri Aerosphere Inhaler) IH SCH ×2 (08:00→20:00)
[2023-07-10] MEDS: metFORMIN 500mg tablet PO SCH ×2 (08:00→21:43)
[2023-07-10] MEDS: budesonide 0.5mg/2ml UD nebule IH SCH ×2 (08:00→20:00)
[2023-07-10] MEDS: docusate sod 100mg capsule PO SCH ×2 (08:00→21:43)
[2023-07-10] MEDS: vortioxetine HBr tablet 5 MG TABLET PO SCH (08:00)
[2023-07-10] MEDS: diltiazem CD 120mg capsule (once-daily) PO SCH (08:00)
[2023-07-10] MEDS: ipratropium 0.5 MG/2.5ML nebule IH SCH ×3 (09:00→20:44)
--- NOTE | 2023-07-10 13:47 | NUR ---
Spoke to ZAKIYA Huddleston, with [facility] (ph# [phone]). She reported they can NOT transport on the weekend. She had concerns that Valeria may get discharged on the weekend. Informed her that we would wait for transport to get scheduled and coordinate discharge with them. DAVID Yanez
--- NOTE | 2023-07-10 18:17 | NUR ---
Nursing Progress Note: Valeria Problem : [facility] on a 5150 at 1507 for DTS from [facility]. Pt expressed suicidal ideation with means, plan and intention to overdose on RX or drive off road on [address] Pt has history of Asthma, VT, depression, fibromyalgia, PTSD, anxiety, personality disorder. [place] called stating pt will have an abrupt demeanor, gave up the rights to her son, switches personalities fast, and threatens to turn units into the state department. They recommend having one person point of contact. Interventions : Introduced self and attempted to establish rapport, maintained a safe and supportive environment, ensured contract for safety, provided clear and simple instructions, provided active listening and positive encouragement, provided education and encouragement regarding medications, endorsed pt's refusal of care to Dr. Maradiaga, and maintained Q 15min safety checks. Response : Received Pt in bed resting and in no distress at the beginning of this shift. Pt was cooperative with vitals. She refused AM medications and breathing TXs, after attempts made to listen and inform her that her BP was 179/109. Pt talked about not being informed of her meds and wanted a print out of her meds. Pt isolated to her room in the morning. Pt appeared to have a long phone conversation with [facility] staff and talked with this RN about agreeing to take her meds next time they were due, I am going to give up the power struggle. Pt showered in late afternoon after filing a writ of habeas corpus. Pts mood became pleasant and talking respectfully with staff in late afternoon. Plan : Pt. continues to require medication adjustments and a safe and supportive environment.
[2023-07-10 19:00] VITALS: BP 140/100; PULSE 109; RESP 16; TEMP 97.8; O2SAT 97
[2023-07-10] MEDS: traZODone 50mg tablet PO SCH (21:00)
[2023-07-10] MEDS: montelukast 10mg tablet PO SCH (21:36)
[2023-07-10] MEDS: cetirizine 10mg tablet PO SCH (21:37)
[2023-07-10] MEDS: lisinopril 10 MG tablet PO SCH (21:37)
[2023-07-10] MEDS: topiramate 100mg tablet PO SCH (21:38)
--- NOTE | 2023-07-11 05:04 | NUR ---
RN PROGRESS NOTE: LEGAL HOLD: 5250 for DTS PROBLEM: Client reported suicidal ideation w/ plan. RESPONSE: Client was sitting in her room, with her feet up, looking out of the window at [facility]. Client was irritated and stated there was a "control issue with the staff about her medications". Client reported she has been refusing all meds. Client then stated she had a list of "approved medications she would take". She reported that [facility] does not want her to "take benzo's". Client took all her PM meds except Trazodone. At this time she is refusing Trazodone. Clients mood is labile. She went to sleep w/o difficulty. PLAN: Medication adjustment.
[2023-07-11] MEDS: hydrOXYzine 25 MG tablet PO PRN ×3 (06:48→20:39)
[2023-07-11 07:00] VITALS: RESP 16; O2SAT 93
[2023-07-11 08:00] VITALS: BP 110/69; PULSE 77; RESP 16; TEMP 97.4; O2SAT 93
[2023-07-11] MEDS: metFORMIN 500mg tablet PO SCH ×2 (08:34→20:39)
[2023-07-11] MEDS: docusate sod 100mg capsule PO SCH ×2 (08:34→20:37)
[2023-07-11] MEDS: traMADol 50MG tablet PO SCH ×2 (08:35→20:51)
[2023-07-11] MEDS: azithromycin 250mg tablet PO SCH (08:35)
[2023-07-11] MEDS: vortioxetine HBr tablet 5 MG TABLET PO SCH (08:35)
[2023-07-11] MEDS: diltiazem CD 120mg capsule (once-daily) PO SCH (08:35)
[2023-07-11] MEDS: ipratropium 0.5 MG/2.5ML nebule IH SCH ×3 (09:00→21:00)
[2023-07-11] MEDS: Budesonide/Glycopyr/Formoterol (Breztri Aerosphere Inhaler) IH SCH ×2 (09:24→20:00)
[2023-07-11] MEDS: budesonide 0.5mg/2ml UD nebule IH SCH ×2 (09:24→20:00)
--- NOTE | 2023-07-11 16:48 | NUR ---
Nursing Progress Note: Problem : [facility] a 5150 for DTS from [facility]. Pt expressed suicidal ideation with means, plan and intention to overdose on RX or drive off road on [address]. Pt has history of Asthma, VT, depression, fibromyalgia, PTSD, anxiety, personality disorder. [place] called stating pt will have an abrupt demeanor, gave up the rights to her son, switches personalities fast. Interventions : Introduced self and attempted to establish rapport, maintained a safe and supportive environment, ensured contract for safety, provided clear and simple instructions, provided active listening and positive encouragement, provided education and encouragement regarding medications and maintained Q 15min safety checks. Response : Nurse received pt. awake at nurses station demanding her PRN for anxiety, stating I want it now, I wont wait. PRN Atarax given at this time and pt. returned to her room. Pt attended breakfast and then returned back to her room. 1:1 was done at bedside and medications were administered with no issues. Pt was much more approachable at this time, cooperative and calm with nurse. Pt. denied all MH symptoms, stating she was suicidal upon admission but is no longer. Pt states she didnt sleep well due to an increase in anxiety, it is noted pt. refused her scheduled trazodone for sleep. PA aware medication refusal from NOC shift. Pt slept till approx. 11am when she requested PRN menthol cough drops for a sore throat, order obtained but pt has been sleeping since the request. Pt went to lunch, requested a PRN for anxiety and returned to bed. Atarax administered at 1345. Plan : Pt. continues to require medication adjustments and a safe and supportive environment.
[2023-07-11 19:00] VITALS: BP 102/69; PULSE 77; RESP 16; RESP 18; TEMP 97.1; O2SAT 97; O2SAT 98
[2023-07-11] MEDS: lisinopril 10 MG tablet PO SCH (20:38)
[2023-07-11] MEDS: montelukast 10mg tablet PO SCH (20:38)
[2023-07-11] MEDS: HALLS - SOOTHE MENTHOL 1.8 MG cough drop LOZENGE MM PRN (20:39)
[2023-07-11] MEDS: cetirizine 10mg tablet PO SCH (20:39)
[2023-07-11] MEDS: topiramate 100mg tablet PO SCH (20:40)
[2023-07-11] MEDS: traZODone 50mg tablet PO SCH (20:41)
--- NOTE | 2023-07-12 04:48 | NUR ---
RN PROGRESS NOTE: LEGAL HOLD: 5250 for DTS PROBLEM: Client reported suicidal ideation w/ plan. RESPONSE: Client is easily angered. Stated "Gaurang told me he was going to cut the Atarax is half because I'm way too drowsy." She did received 50 mg Atarax Tab PO. It was later changed to 25 mg. Fell asleep w/o difficulty and appeared to sleep well. Took all PM meds. PLAN: Medication adjustment.
[2023-07-12 07:00] VITALS: RESP 16; O2SAT 98
[2023-07-12 08:00] VITALS: BP 120/77; PULSE 69; RESP 16; TEMP 96.9; O2SAT 98
[2023-07-12] MEDS: diltiazem CD 120mg capsule (once-daily) PO SCH (08:44)
[2023-07-12] MEDS: docusate sod 100mg capsule PO SCH ×2 (08:45→20:16)
[2023-07-12] MEDS: vortioxetine HBr tablet 5 MG TABLET PO SCH (08:45)
[2023-07-12] MEDS: traMADol 50MG tablet PO SCH ×2 (08:45→20:16)
[2023-07-12] MEDS: metFORMIN 500mg tablet PO SCH ×2 (08:46→20:17)
[2023-07-12] MEDS: azithromycin 250mg tablet PO SCH (08:46)
[2023-07-12] MEDS: ipratropium 0.5 MG/2.5ML nebule IH SCH ×3 (09:00→21:00)
[2023-07-12] MEDS: budesonide 0.5mg/2ml UD nebule IH SCH ×2 (09:30→20:00)
[2023-07-12] MEDS: Budesonide/Glycopyr/Formoterol (Breztri Aerosphere Inhaler) IH SCH ×2 (09:30→20:00)
--- NOTE | 2023-07-12 10:19 | NUR ---
Reassessment: Per documentation pt has refused five meals 07/08 to breakfast 07/10 though up to 100% PO intake the following six meals. Pt needs an average of 82% PO intake of meals to meet 100% estimated nutrient needs. LBM 07/11 per EMR. Pt receiving routine and PRN bowel care. No nutrition intervention implemented at this time given improved PO intake. Will continue to follow and make recommendations as appropriate. Recommendations: 1. Liberalize to regular diet as CHO controlled diet restriction not warranted given A1c 6.1% and only serum BG 101 mg/dL (07/08) which is WNL 2. Monitor need for ONS pending further trends in PO intake 3. Routine bowel care 4. Weekly scaled weights Addendum: 07/12/23 at [address] Amended: Links added.
[2023-07-12] MEDS: HALLS - SOOTHE MENTHOL 1.8 MG cough drop LOZENGE MM PRN ×2 (10:26→14:15)
[2023-07-12] MEDS ORDERED: albuterol 2.5 MG/3 ML nebule NEB PRN (13:45)
[2023-07-12] MEDS: hydrOXYzine 25 MG tablet PO PRN ×2 (14:15→20:17)
[2023-07-12] MEDS: albuterol 2.5 MG/3 ML nebule NEB SCH ×2 (16:00→20:00)
--- NOTE | 2023-07-12 17:32 | NUR ---
Nursing Progress Note: Valeria Problem : [facility] 5150 at 1507 for DTS from [facility]. Pt expressed suicidal ideation with means, plan and intention to overdose on RX or drive off [place] on [address] Pt has history of Asthma, [place], depression, fibromyalgia, PTSD, anxiety, personality disorder. [place] called stating pt will have an abrupt demeanor, gave up the rights to her son, switches personalities fast, and threatens to turn units into the state department. They recommend having one person point of contact. Interventions : Introduced self and attempted to establish rapport, maintained a safe and supportive environment, ensured contract for safety, provided clear and simple instructions, provided active listening and positive encouragement, provided education and encouragement regarding medications, endorsed pt.s refusal of care to Dr. Maradiaga, and maintained Q 15min safety checks. Response: Received Pt in bed and appearing to be asleep and in no distress at the beginning of this shift. Pt was cooperative with vitals. She got up and ate breakfast with others in community room. Pt smiling and engaged with this RN in long conversation/ assessment. Pt focuses on problems with staff, healthcare and govt systems. She took AM meds w/o issue, except breathing TXs which she states do not work. She is waiting for her inhaler to come in the mail and she is sure it will arrive tomorrow. Pt used cough drops throughout the day and Atarax X1 prn for anxiety with good effect. Pt napped in afternoon. She spent time in community room watching TV and socializing with others. Plan : Pt. continues to require medication adjustments and a safe and supportive environment.
[2023-07-12 19:00] VITALS: RESP 16; O2SAT 98
[2023-07-12 20:00] VITALS: BP 103/61; PULSE 81; RESP 16; TEMP 97.7; O2SAT 93
[2023-07-12] MEDS: topiramate 100mg tablet PO SCH (20:16)
[2023-07-12] MEDS: cetirizine 10mg tablet PO SCH (20:17)
[2023-07-12] MEDS: montelukast 10mg tablet PO SCH (20:17)
[2023-07-12] MEDS: traZODone 50mg tablet PO SCH (20:17)
[2023-07-12] MEDS: lisinopril 10 MG tablet PO SCH (20:18)
[2023-07-13] VITALS (7 sets, daily range): BP systolic 110–117; BP diastolic 61–64; PULSE 53–76; RESP 15–18; TEMP 97.7–98; O2SAT 94–98
--- NOTE | 2023-07-13 01:00 | NUR ---
Nursing Progress Note: Problem : Pt admitted to [facility] on a 5150 at 1507 for DTS from [facility]. Pt expressed suicidal ideation with means, plan and intention to overdose on RX or drive off road on [address] Pt has history of Asthma, [place], depression, fibromyalgia, PTSD, anxiety, personality disorder. [place] called stating pt will have an abrupt demeanor, gave up the rights to her son, switches personalities fast, and threatens to turn units into the state department. They recommend having one person point of contact. Interventions : Introduced self and attempted to establish rapport, maintained a safe and supportive environment, ensured contract for safety, provided clear and simple instructions, provided active listening and positive encouragement, provided education and encouragement regarding medications, endorsed pt.s refusal of care to Dr. Maradiaga, and maintained Q 15min safety checks. Response: Pt awake in room at start of shift. Has a long list of grievances regarding her doctor, the nurses and the Respiratory therapist. Throughout the shift repeats some of these complaints several times. Pt unwilling to accept any possible solutions. Offers to call irrigation supervisor MD to get medications pt said she wanted were refused. Pt most repeated c/o was she was unable to get her Ativan. Offer to call irrigation supervisor MD and ask for x1 dose of Ativan refused. Pt said "I'll just be awake all night. She took all meds and was cooperative with care other than repeating long and detailed complaints several times this shift. She believes she is going home on Thursday Plan : Pt. continues to require medication adjustments and a safe and supportive environment.
[2023-07-13] MEDS: albuterol 2.5 MG/3 ML nebule NEB SCH ×2 (02:00→08:00)
[2023-07-13] MEDS: Budesonide/Glycopyr/Formoterol (Breztri Aerosphere Inhaler) IH SCH ×2 (08:00→20:00)
[2023-07-13] MEDS: budesonide 0.5mg/2ml UD nebule IH SCH ×2 (08:00→20:41)
[2023-07-13] MEDS: ipratropium 0.5 MG/2.5ML nebule IH SCH (08:20)
--- NOTE | 2023-07-13 08:22 | NUR ---
USED CAR SALESPERSON spoke with patient for about 15 min about ordered medications. Pt. was not satisfied with medications ordered and wanted home device. If the home device becomes available today RN will page USED CAR SALESPERSON to administer. Addendum: 07/13/23 at 0825 by Theodore Márquez RT Amended: Links added.
[2023-07-13] MEDS: diltiazem CD 120mg capsule (once-daily) PO SCH (09:25)
[2023-07-13] MEDS: traMADol 50MG tablet PO SCH ×2 (09:26→20:18)
[2023-07-13] MEDS: metFORMIN 500mg tablet PO SCH ×2 (09:26→20:16)
[2023-07-13] MEDS: vortioxetine HBr tablet 5 MG TABLET PO SCH (09:27)
[2023-07-13] MEDS: docusate sod 100mg capsule PO SCH ×2 (09:27→20:15)
[2023-07-13] MEDS: hydrOXYzine 25 MG tablet PO PRN ×2 (09:34→20:17)
[2023-07-13] MEDS: HALLS - SOOTHE MENTHOL 1.8 MG cough drop LOZENGE MM PRN ×3 (11:15→17:33)
--- NOTE | 2023-07-13 12:43 | NUR ---
NURSING PROGRESS NOTE Problem : Pt admitted to [facility] on a 5150 at 1507 for DTS from [facility]. Pt expressed suicidal ideation with means, plan and intention to overdose on RX or drive off road on [address] Pt has history of Asthma, [place], depression, fibromyalgia, PTSD, anxiety, personality disorder. [place] called stating pt will have an abrupt demeanor, gave up the rights to her son, switches personalities fast, and threatens to turn units into the state department. They recommend having one person point of contact. Interventions : maintained a safe and supportive environment, provided clear and simple instructions, provided active listening and positive encouragement, administered medication as ordered with no adverse side effects, and maintained Q 15min safety checks. Response: Received patient sleeping at [facility]. Pt woke appeared pleasant and ate breakfast with peers. Pt was complaint with PO medications, however continues to decline breathing treatments. Public Health Technologist's understanding is that pt's home medication will be arriving tomorrow, however she will probably be discharged tomorrow. Pt has a moderate cough and given cough drops as requested. Pt declined any other intervention. Pt requested her PRN Atarax with her morning medications. Plan : Patient is at baseline and the plan is discharge this week, pending transportation from [facility].
[2023-07-13] MEDS: ipratropium/albuterol 3ml nebule NEB SCH ×2 (15:00→21:00)
[2023-07-13] MEDS: topiramate 100mg tablet PO SCH (20:15)
[2023-07-13] MEDS: cetirizine 10mg tablet PO SCH (20:15)
[2023-07-13] MEDS: lisinopril 10 MG tablet PO SCH (20:16)
[2023-07-13] MEDS: montelukast 10mg tablet PO SCH (20:17)
[2023-07-13] MEDS: traZODone 50mg tablet PO SCH (20:20)
[2023-07-13] MEDS: ipratropium 0.5 MG/2.5ML nebule IH PRN (20:42)
--- NOTE | 2023-07-13 22:08 | NUR ---
Pt requested that we call the to request Ativan. This patient has already been told by the provider that her outpatient psychiatrist does not want her on Ativan. Pt made this same request two nights ago and was told no at that time. Pt is now demanding a copy of her med list, which her nurse gave to her last night (and patient has been given on multiple occasions). She has had no changes to her medication today. Pt is clearly staff splitting and when confronted denies that the nurse gave her a med list, or that she tried to get Ativan a couple a nights ago. According to her these events did not occur, but they in fact did. Firm limit setting and boundaries given.
--- NOTE | 2023-07-14 03:59 | NUR ---
NURSING PROGRESS NOTE Problem : Pt admitted to [facility] on a 5150 at 1507 for DTS from [facility]. Pt expressed suicidal ideation with means, plan and intention to overdose on RX or drive off road on [address] Pt has history of Asthma, [place], depression, fibromyalgia, PTSD, anxiety, personality disorder. [place] called stating pt will have an abrupt demeanor, gave up the rights to her son, switches personalities fast, and threatens to turn units into the state department. They recommend having one person point of contact. Interventions : maintained a safe and supportive environment, provided clear and simple instructions, provided active listening and positive encouragement, administered medication as ordered with no adverse side effects, and maintained Q 15min safety checks. Response: Pt sat in the chair in her room staring out the window after outburst (see previous Charge nurse note) She became calm and cooperative went to bed and went to sleep. Plan : Patient is at baseline and the plan is discharge this week, pending transportation from [facility].
[2023-07-14 07:00] VITALS: RESP 16; O2SAT 99
[2023-07-14 08:00] VITALS: BP 117/69; PULSE 60; RESP 16; TEMP 97.1; O2SAT 99
[2023-07-14] MEDS: Budesonide/Glycopyr/Formoterol (Breztri Aerosphere Inhaler) IH SCH (08:00)
[2023-07-14] MEDS: budesonide 0.5mg/2ml UD nebule IH SCH (08:00)
[2023-07-14] MEDS: metFORMIN 500mg tablet PO SCH (08:38)
[2023-07-14] MEDS: docusate sod 100mg capsule PO SCH (08:38)
[2023-07-14] MEDS: diltiazem CD 120mg capsule (once-daily) PO SCH (08:39)
[2023-07-14] MEDS: vortioxetine HBr tablet 5 MG TABLET PO SCH (08:39)
[2023-07-14] MEDS: traMADol 50MG tablet PO SCH (08:41)
[2023-07-14] MEDS: ipratropium/albuterol 3ml nebule NEB SCH (09:00)
[2023-07-14 10:18] VITALS: RESP 16
--- NOTE | 2023-07-14 10:18 | NUR ---
Per Shruthi Barrera patient has dropped her WRIT and is ready to go home. Patient county [place] will be picking her up today. This advertising writer called [facility] and cx the 2pm hearing today, S/W Marisol at [facility] office and she stated she will cx the hearing. ([phone])
[2023-07-14] MEDS ORDERED: HYDR-3686 PO (10:32)
--- NOTE | 2023-07-14 11:52 | NUR ---
DISCHARGE PLAN [facility] transport will flower buncher or picker Valeria 2-3 PM today to return home. She has follow up scheduled with [facility]. DAVID Yanez
--- NOTE | 2023-07-14 11:57 | NUR ---
Pt refused pictures Addendum: 07/14/23 at 1157 by Pantera Tiwari RN Amended: Links added.
[2023-07-14] MEDS: HALLS - SOOTHE MENTHOL 1.8 MG cough drop LOZENGE MM PRN (14:09)
--- NOTE | 2023-07-14 16:05 | NUR ---
Nursing Discharge Note Pt discharged from [facility] at 1500 to [facility] staff who will be driving her back home. Pt smiling and in a pleasant mood and denies SI. Pt in no acute physical or emotional distress and has been improving since admission. She understands her discharge instructions and F/U care. Her belongings and valuables were inventoried and returned to her, along with a package containing her inhaler that arrived today. Pt did not want nicotine replacement.
== END 2023-07-14 15:11 | disposition home or self-care (01) | DRG 885 ==
LOC: ADULT MH 17:50 → UNDOADMIN 17:50 → ADULT MH 07-03 15:07
PROVIDERS: ADMIT Psychiatry & Neurology Psychiatry; ATTEND Psychiatry & Neurology Psychiatry
DX: F39 Unspecified mood [affective] disorder (principal); I47.1 Supraventricular tachycardia; R45.851 Suicidal ideations; Z68.41 Body mass index [BMI] 40.0-44.9, adult; F60.3 Borderline personality disorder; F44.81 Dissociative identity disorder; F60.81 Narcissistic personality disorder; F43.12 Post-traumatic stress disorder, chronic; Z53.20 Procedure and treatment not carried out because of patient's decision for unspecified reasons; M79.7 Fibromyalgia; I10 Essential (primary) hypertension; E11.9 Type 2 diabetes mellitus without complications; K59.00 Constipation, unspecified; E66.01 Morbid (severe) obesity due to excess calories; Z79.899 Other long term (current) drug therapy; Z79.84 Long term (current) use of oral hypoglycemic drugs
CPT/HCPCS: 36415; 71045; 80053; 83036; 85025; 87081; 94640; 94760; 94799; Q0163; Q0177